=== PATIENT | male | born 2000 | race Caucasian/White ===

== ENCOUNTER 2022-09-06 19:34 | Inpatient (IN) | payer OTHER ==
[~2022-09-06] VITALS: Ht 180.3 cm; Wt 67.3 kg
[2022-09-06 21:32] LABS: HEMATOCRIT 45.6 % (42.0-52.0); MEAN CORPUSCULAR HEMOGLOBIN 30.4 pg (27.0-33.0); MEAN CORPUSCULAR HGB CONC 35.1 g/dl (32.0-36.5); MEAN CORPUSCULAR VOLUME 86.5 fl (80.0-96.0); PLATELET COUNT, AUTOMATED 259 10^3/uL (150-450); RED BLOOD COUNT 5.27 10^6/uL (4.30-6.10); WHITE BLOOD COUNT 7.4 10^3/uL (4.0-10.0)
[2022-09-06 21:56] LABS: AMPHETAMINES LEVEL URINE NEGATIVE (NEGATIVE); BARBITURATES URINE NEGATIVE (NEGATIVE); BENZODIAZEPINES URINE NEGATIVE (NEGATIVE); CANNABINOIDS URINE NEGATIVE (NEGATIVE); COCAINE METABOLITE URINE NEGATIVE (NEGATIVE); METHADONE URINE NEGATIVE (NEGATIVE); OPIATES URINE NEGATIVE (NEGATIVE); PHENCYCLIDINE URINE NEGATIVE (NEGATIVE)
[2022-09-06 21:57] LABS: ETHYL ALCOHOL (ETHANOL) 0.003 % (0.000-0.010)
[2022-09-06 21:59] LABS: ACETAMINOPHEN LEVEL < 2.0 UG/ML (10.0-20.0); ALBUMIN 4.5 G/DL (3.2-5.2); ALKALINE PHOSPHATASE 72 U/L (46-116); ALT/SGPT 13 U/L (7.0-40); AST/SGOT 19 U/L (<34); BILIRUBIN,DIRECT 0.3 MG/DL (<0.4); BILIRUBIN,TOTAL 0.8 MG/DL (0.3-1.2); BLOOD UREA NITROGEN 14 MG/DL (9-23); CALCIUM LEVEL 9.4 MG/DL (8.5-10.1); CARBON DIOXIDE LEVEL 24 MMOL/L (20-31); CHLORIDE LEVEL 103 MMOL/L (98-107); GLOMERULAR FILTRATION RATE > 60.0 (>60); GLUCOSE, FASTING 90 MG/DL (60-100); POTASSIUM SERUM 4.1 MMOL/L (3.5-5.1); SALICYLATE LEVEL < 3.0 MG/DL (<30); SODIUM LEVEL 140 MMOL/L (136-145)
[2022-09-06 22:01] LABS: THYROID STIMULATING HORMONE 2.429 uIU/ML (0.55-4.78)
[2022-09-06] MEDS ORDERED: HOME MED LIST COMPLETE! XX SCH (23:30)
[2022-09-07] MEDS ORDERED: MOM 30ML SUSPENSION UDC PO PRN (04:30)
[2022-09-07] MEDS ORDERED: ACETAMINOPHEN TAB 650MG DOSE (2X325MG) PO PRN (04:30)
[2022-09-07] MEDS ORDERED: MAALOX 30 ML SUSP *UDC PO PRN (04:30)
[2022-09-07] MEDS ORDERED: traZODone 50 MG TAB PO PRN (04:30)
[2022-09-07 07:01] VITALS: BP 116/60
[2022-09-07] MEDS: NICOTINE 21MG/24HR 1 EA TRANSDERMAL TD PRN (08:36)
[2022-09-07 16:28] VITALS: BP 124/67
[2022-09-08 06:31] VITALS: BP 112/55
[2022-09-08] MEDS: SERTRALINE HCL 50 MG TAB PO SCH (07:49)
[2022-09-08] MEDS: NICOTINE 21MG/24HR 1 EA TRANSDERMAL TD PRN (07:51)
[2022-09-08 16:38] VITALS: BP 104/56
[2022-09-09 06:56] VITALS: BP 104/58
[2022-09-09] MEDS: SERTRALINE HCL 50 MG TAB PO SCH (08:40)
[2022-09-09] MEDS: NICOTINE 21MG/24HR 1 EA TRANSDERMAL TD PRN (08:41)
[2022-09-09 19:03] VITALS: BP 138/89
[2022-09-10 06:29] VITALS: BP 103/53
[2022-09-10] MEDS: NICOTINE 21MG/24HR 1 EA TRANSDERMAL TD PRN (07:57)
[2022-09-10] MEDS ORDERED: NICO21PAT TD (08:41)
[2022-09-10] MEDS ORDERED: SERT50TA29 PO (08:41)
[2022-09-10] MEDS: SERTRALINE HCL 50 MG TAB PO SCH (08:58)
== END 2022-09-10 11:49 | disposition home or self-care (01) | DRG 885 ==
LOC: M ED 19:34 → M ED INP 09-07 04:26 → M PSY 09-07 06:26
PROVIDERS: ADMIT Psychiatry & Neurology Psychiatry; ATTEND Psychiatry & Neurology Psychiatry
DX: F39 Unspecified mood [affective] disorder (principal); R45.851 Suicidal ideations; F17.200 Nicotine dependence, unspecified, uncomplicated